=== PATIENT | male | born 1930 | race Caucasian/White ===

== ENCOUNTER 2021-01-01 21:53 | Emergency (ER) | payer OTHER ==
[~2021-01-01] VITALS: Ht 185.4 cm; Wt 49.4 kg
[~2021-01-01 21:53] MED LIST: ARICEPT10 M1 PO; ASPIRIN325 PO; B-122500 MCG PO; DOXYCYCLINE 10100 M1 PO; EXCEDRIN CAPLE1 EACH PO; FLOMAX0.4 MG PO; GLUCOPHAGE500 MG PO; LEVAQUIN 500 M500 M2 PO; METFORMIN HCL500 MG PO; NAMENDA 10 MG T10 MG PO; NAMENDA XR28 MG PO; OSTEO BI-FLEX1 EAC1 PO; UNICOMPLEX M TA1 TA1 PO; VITAMIN D3400 UNIT PO
[2021-01-01 22:55] LABS: ABSOLUTE LYMPHOCYTES 1.8 thou/uL (0.8-5.3); ABSOLUTE MONOCYTES 0.6 thou/uL (0.0-1.2); ABSOLUTE NEUTROPHILS 3.4 thou/uL (1.6-8.1); BASOPHILS 0.4 %; EOSINOPHILS 0.7 %; HEMATOCRIT 38.2 % (42.0-52.0); HEMOGLOBIN 13.3 gm/dL (14.0-18.0); LYMPHOCYTES 30.6 %; MCH 33.4 pg (26.0-34.0); MCHC 34.7 g/dL (28.0-37.0); MCV 96.2 fL (80.0-100.0); MONOCYTES 9.9 %; MPV 7.6 fl. (7.2-11.1); NUCLEATED RBCS 0 /100WBC; PLATELET COUNT* 230 thou/uL (150-400); POLYS 58.4 %; RBC 3.97 mil/uL (4.50-6.00); RDW-CV 12.9 % (10.5-14.5); WBC 5.9 thou/uL (4.0-11.0)
[2021-01-01 23:03] LABS: CALCIUM 8.3 mg/dL (8.5-10.1); CREATININE 0.9 mg/dL (0.6-1.3); POTASSIUM 3.5 mmol/L (3.5-5.1)
[2021-01-01 23:08] LABS: ALBUMIN 3.4 g/dL (3.4-5.0); TOTAL BILIRUBIN 0.4 mg/dL (<0.1-1.0); TOTAL PROTEIN 6.7 g/dL (6.4-8.2)
[2021-01-01 23:15] LABS: SALICYLATE 10.7 mg/dL (2.8-20.0)
[2021-01-01 23:19] LABS: MAGNESIUM 1.5 mg/dL (1.8-2.4)
[2021-01-02 00:12] LABS: URINE BILIRUBIN NEGATIVE (Negative); URINE BLOOD NEGATIVE (Negative); URINE CLARITY CLEAR; URINE COLOR STRAW; URINE GLUCOSE-RANDOM NEGATIVE (Negative); URINE KETONES NEGATIVE (Negative); URINE LEUKOCYTES-REFLEX NEGATIVE (Negative); URINE NITRITE-REFLEX NEGATIVE (Negative); URINE PROTEIN NEGATIVE (Negative); URINE SPECIFIC GRAVITY 1.015 (1.005-1.030); URINE UROBILINOGEN 0.2 E.U./dl (0.2-1.0)
[2021-01-02 06:24] VITALS: BP 138/60
--- NOTE | 2021-01-02 10:04 | EKG ---
[place] [address] ELECTROCARDIOGRAM REPORT Name: KEY LOVELL Room: [facility]#: [id number] Admission: 01/01/21 Attend Phys: Discharge: Date of : [birth year] Date of Service: 01/01/21 2303 Report #: [id number] THIS REPORT FOR: //name// [facility] ED Test Date: 2021-01-01 Test Time: 23:03:27 Pat Name: KEY LOVELL Department: Room: Gender: Customer Success Director: [place] : 1930 Requested By: Germaine Miller Order Number: [id number] MD: Leon Matos Measurements Intervals [place] Rate: 63 P: 69 NC: 173 QRS: -64 QRSD: 114 T: 56 QT: 425 QTc: 436 Interpretive Statements Sinus rhythm Left anterior fascicular block Abnormal R-wave progression, late transition Probable left ventricular hypertrophy Compared to ECG 12/08/2016 08:28 rate has slowed Electronically Signed On 01-02-2021 10:04:33 CDT by Leon Matos [email or web address] <ELECTRONICALLY SIGNED> By: Leon Matos MD, FAC 01/02/21 1004 2303 Leon Matos MD, [facility] /EPI
== END 2021-01-02 06:35 | disposition home or self-care (01) ==
LOC: M.ERS 21:53
PROVIDERS: Emergency Medicine
DX: F03.90 Unspecified dementia, unspecified severity, without behavioral disturbance, psychotic disturbance, mood disturbance, and anxiety (principal); I10 Essential (primary) hypertension; Z90.49 Acquired absence of other specified parts of digestive tract; Z79.899 Other long term (current) drug therapy

== ENCOUNTER 2021-05-09 11:50 | Emergency (ER) | payer OTHER ==
[~2021-05-09] VITALS: Ht 185.4 cm; Wt 86.2 kg
[2021-05-09 12:12] LABS: ABSOLUTE EOSINOPHILS 0.1 thou/uL (0.0-0.7); ABSOLUTE LYMPHOCYTES 1.9 thou/uL (0.8-5.3); ABSOLUTE MONOCYTES 0.5 thou/uL (0.0-1.2); BASOPHILS 0.4 %; EOSINOPHILS 1.2 %; HEMATOCRIT 41.1 % (42.0-52.0); HEMOGLOBIN 13.9 gm/dL (14.0-18.0); LYMPHOCYTES 28.7 %; MCH 32.7 pg (26.0-34.0); MCHC 33.7 g/dL (28.0-37.0); MCV 96.9 fL (80.0-100.0); MONOCYTES 8.4 %; MPV 7.6 fl. (7.2-11.1); NUCLEATED RBCS 0 /100WBC; PLATELET COUNT* 242 thou/uL (150-400); POLYS 61.3 %; RBC 4.25 mil/uL (4.50-6.00); RDW-CV 13.3 % (10.5-14.5); WBC 6.6 thou/uL (4.0-11.0)
--- NOTE | 2021-05-09 12:31 | EKG ---
[place] [address] ELECTROCARDIOGRAM REPORT Name: KEY LOVELL Room: [facility]#: [id number] Admission: 05/09/21 Attend Phys: Discharge: Date of : [birth year] Date of Service: 05/09/21 1157 Report #: [id number] THIS REPORT FOR: //name// [facility] ED Test Date: 2021-05-09 Test Time: 11:57:49 Pat Name: KEY LOVELL Department: Room: Gender: Resident Care Manager Rn: : 1930 Requested By: Jason France Order Number: [id number] MD: Leon Matos Measurements Intervals [place] Rate: 64 P: 10 NC: 186 QRS: -44 QRSD: 102 T: 47 QT: 419 QTc: 433 Interpretive Statements Sinus rhythm Left axis deviation Borderline ST elevation, early repolarization Compared to ECG 01/01/2021 23:03:27 no change Electronically Signed On 05-09-2021 12:31:03 CLIENT APPLICATION SUPPORT SPECIALIST by Leon Matos [email or web address] <ELECTRONICALLY SIGNED> By: Leon Matos MD, [facility] 05/09/21 1231 1157 1157 Leon Maots MD, [facility] /EPI
[2021-05-09 12:33] LABS: CALCIUM 8.7 mg/dL (8.5-10.1); CREATININE 0.9 mg/dL (0.6-1.3); POTASSIUM 4.2 mmol/L (3.5-5.1)
[2021-05-09 12:36] LABS: ALBUMIN 3.4 g/dL (3.4-5.0); MAGNESIUM 1.9 mg/dL (1.8-2.4)
[2021-05-09 12:54] LABS: TOTAL BILIRUBIN 0.4 mg/dL (<0.1-1.0)
[2021-05-09 14:49] VITALS: BP 179/96
--- NOTE | 2021-05-10 10:34 | EKG ---
[place] [address] ELECTROCARDIOGRAM REPORT Name: KEY LOVELL Room: [facility]#: [id number] Admission: 05/09/21 Attend Phys: Discharge: 05/09/21 Date of : [birth year] Date of Service: 05/09/21 1356 Report #: [id number] THIS REPORT FOR: //name// [facility] ED Test Date: 2021-05-09 Test Time: 13:56:38 Pat Name: KEY NAS Department: Room: Gender: Pharmacy Helper: ELVIS : 1930 Requested By: Jason France Order Number: [id number] MD: Leon Matos Measurements Intervals [place] Rate: 59 P: 39 GA: 177 QRS: -49 QRSD: 102 T: 38 QT: 415 QTc: 412 Interpretive Statements Sinus rhythm Left anterior fascicular block Anterior ST elevation, early repolarization Compared to ECG 05/09/2021 11:57:49 ST (T wave) deviation still present Electronically Signed On 05-10-2021 10:34:01 SILVER LAP MACHINE TENDER by Leon aMtos [email or web address] <ELECTRONICALLY SIGNED> By: Leon Matos MD, FACC 05/10/21 1034 1356 1356 Leon Matos MD, [facility] /EPI
== END 2021-05-09 14:51 | disposition home or self-care (01) ==
LOC: M.ERS 11:50
PROVIDERS: Emergency Medicine Emergency Medical Services
DX: R07.89 Other chest pain (principal); I10 Essential (primary) hypertension; Z90.49 Acquired absence of other specified parts of digestive tract; Z79.84 Long term (current) use of oral hypoglycemic drugs; Z79.899 Other long term (current) drug therapy; Z79.891 Long term (current) use of opiate analgesic